=== PATIENT | female | born 1960 | race Caucasian/White ===

== ENCOUNTER → 2016-09-29 | Outpatient (CLI) | payer BC ==
--- NOTE | 2016-09-30 07:54 | MAMMOGRAPHY REPORT ---
BILATERAL DIGITAL SCREENING MAMMOGRAM WITH CAD: 09/29/2016 CLINICAL HISTORY: Routine screening. Patient has no complaints. TECHNIQUE: Bilateral CC and MLO views were obtained. Current study was also evaluated with a Compute r Aided Detection (CAD) system. COMPARISON: Comparison is made to exams dated: 09/03/2015 mammogram, 08/29/2014 mammogram, 08/09/2013 ma mmogram - [facility], 08/11/2012 mammogram, 04/30/2011 mammogram, and 10/26/2010 mammog octaviano - [facility]. BREAST COMPOSITION: The tissue of both breasts is heterogeneously dense, which may obscure small mas ses. FINDINGS: There is a 10 mm nodular asymmetry in the middle one third of the right breast, 9 cm dista l to the nipple along the posterior nipple line on the CC view, also thought to project along the pos terior nipple line on the MLO view. Although this could represent overlapping fibroglandular tissue, additional spot compression tomosynthesis views and possibly ultrasound are recommended. There is evidence of prior left breast surgery. Stable post postbiopsy changes in the right upper ou ter quadrant, with natalya-shaped metallic biopsy marker in place. Stable diffuse benign-appearing round and punctate microcalcifications. No other suspicious mass, architectural distortion or cluster of microcalcifications is seen. IMPRESSION: ACR BI-RADS CATEGORY 0: INCOMPLETE EVALUATION: NEED ADDITIONAL IMAGING EVALUATION The 10 mm nodular asymmetry in the right breast, along the posterior nipple line on the CC view, need s additional evaluation. The patient will be called to schedule an appointment. Approximately 10% of breast cancers are not detected with mammography. A negative mammographic report should not delay biopsy if a clinically suggestive mass is present. Loan Davidson M.D. ay/:09/29/2016 15:34:07 Automobile Spring Repairer: Nicole Ramos [facility] letter sent: Addl Imaging 0 BI-RADS Code: ACR BI-RADS Category 0: Incomplete Evaluation: Need Additional Imaging Evaluation
== END | disposition home or self-care (01) ==
LOC: C.MAMM 13:31
PROVIDERS: ATTEND Family Medicine
DX: Z12.31 Encounter for screening mammogram for malignant neoplasm of breast (principal); N64.89 Other specified disorders of breast

== ENCOUNTER → 2016-10-05 | Outpatient (CLI) | payer BC ==
--- NOTE | 2016-10-06 09:25 | MAMMOGRAPHY REPORT ---
UNILATERAL RIGHT DIGITAL DIAGNOSTIC MAMMOGRAM TOMOSYNTHESIS AND TARGETED RIGHT ULTRASOUND: 10/05/2016 CLINICAL HISTORY: Callback from screening mammography for a 10 mm asymmetry seen on the CC view, slig htly medial to the posterior nipple line in the middle one third of the breast. TECHNIQUE: Spot compression right CC and MLO 2-D and tomosynthesis images were obtained. COMPARISON: Comparison is made to exams dated: 09/29/2016 mammogram, 09/03/2015 mammogram, 08/29/2014 m ammogram, 08/09/2013 mammogram - [facility], 08/11/2012 mammogram, and 04/30/[address] [facility]. BREAST COMPOSITION: The tissue of the right breast is heterogeneously dense, which may obscure small masses. FINDINGS: The recently described 10 mm asymmetry in the middle one third of the right breast effaces with the supplemental spot compression view and there is no corresponding mass or architectural disto rtion on the tomosynthesis images. However, a lobulated mass is now seen in the medial, middle one t hird of the right breast on the spot compression CC view, and below the posterior nipple line on the spot compression MLO view. This lobulated, partially circumscribed mass measures 6.2 x 7.8 x 7.1 mm. Further characterization with ultrasound was performed. No other area of architectural distortion, obvious mass or suspicious microcalcifications are seen. Targeted ultrasound was performed in the medial right breast. In the 1:00 axis, 8 cm from the nipple , there is a multilobulated predominantly anechoic cyst with a few internal nonvascular septations, m easuring 6.7 x 5.0 x 9.6 mm. This correlates well in size, shape and location of the mammographic ma ss and is a benign cyst. No other discrete solid or cystic mass is seen. IMPRESSION: ACR BI-RADS CATEGORY 2: BENIGN, TARGETED ULTRASOUND ACR BI-RADS CATEGORY 2: BENIGN There is effacement of the asymmetry in the right breast along the posterior nipple line on the suppl emental mammographic views and corresponding tomosynthesis images. A newly visualized lobulated mass in the medial right breast measuring 7.8 mm corresponds to a multilobulated cyst on ultrasound. The re is no mammographic or targeted sonographic evidence of malignancy. Return to annual mammogram scr eening schedule is recommended. The patient has been verbally notified of the results. Approximately 10% of breast cancers are not detected with mammography. A negative mammographic report should not delay biopsy if a clinically suggestive mass is present. Loan Davidson M.D. ay/:10/05/2016 08:43:52 Certified Art Therapist: Nicole Ramos, [facility] letter sent: Normal 1/2 BI-RADS Code: ACR BI-RADS Category 2: Benign Ultrasound BI-RADS: ACR BI-RADS Category 2: Benign
== END | disposition home or self-care (01) ==
LOC: C.MAMM 08:12
PROVIDERS: ATTEND Family Medicine
DX: N60.01 Solitary cyst of right breast (principal); R92.8 Other abnormal and inconclusive findings on diagnostic imaging of breast

== ENCOUNTER → 2017-10-21 | Outpatient (CLI) | payer BC ==
--- NOTE | 2017-10-21 15:41 | MAMMOGRAPHY REPORT ---
BILATERAL DIGITAL SCREENING MAMMOGRAM TOMOSYNTHESIS WITH CAD: 10/21/2017 CLINICAL HISTORY: Routine screening. Patient has no complaints. TECHNIQUE: The study was acquired using full field digital technology and interpreted from soft copy. Breast tomosynthesis in addition to standard 2D mammography was performed. Current study was also ev aluated with a Computer Aided Detection (CAD) system. COMPARISON: Comparison is made to exams dated: 10/05/2016 mammogram, 09/29/2016 mammogram, 09/03/2015 ma mmogram, 08/29/2014 mammogram, 08/09/2013 mammogram - [facility], and 08/11/2012 mammogr am - [facility]. BREAST COMPOSITION: The tissue of both breasts is heterogeneously dense, which may obscure small mass es. FINDINGS: No suspicious masses, calcifications, or areas of architectural distortion are noted in either breast . There has been no significant interval change compared to prior exams. Bilateral asymmetries and s cattered bilateral benign-appearing calcifications are not significantly changed. A biopsy clip is a gain noted within the right upper outer quadrant. IMPRESSION: ACR BI-RADS CATEGORY 2: BENIGN There is no mammographic evidence of malignancy. A 1 year screening mammogram is recommended.( 019) The patient will receive written notification of the results. Some breast cancers are not detected with mammography. A negative mammographic report should not aleta y biopsy if a clinically suggestive mass is present. Swetha Starks M.D. ah/:10/21/2017 07:45:09 Cycle Consultant: RT Anabella(R)(M), [facility] letter sent: Normal 1/2 BI-RADS Code: ACR BI-RADS Category 2: Benign
== END | disposition home or self-care (01) ==
LOC: C.MAMM 07:12
PROVIDERS: ATTEND Family Medicine
DX: Z12.31 Encounter for screening mammogram for malignant neoplasm of breast (principal)

== ENCOUNTER 2019-01-31 20:28 | Inpatient (IN) ==
[2019-01-31 21:29] LABS: Basophils # (auto) 0.02 K/uL (0-0.2); Basophils % (auto) 0.3 %; Eosinophils # (auto) 0.31 K/uL (0-0.5); Eosinophils % (auto) 4.4 %; Hematocrit (blood only) 41.3 % (37-47); Hemoglobin 13.5 g/dL (12.0-16.0); Immature Granulocytes # (auto) 0.01 K/uL (0.00-0.02); Immature Granulocytes % (auto) 0.1 %; Lymphocytes # (auto) 1.79 K/uL (1.2-3.4); Lymphocytes % (auto) 25.7 %; Mean Corpuscular Hemoglobin 29.5 pg (25-34); Mean Corpuscular Hgb Conc 32.7 g/dL (32-36); Mean Corpuscular Volume 90.4 fL (80-100); Mean Platelet Volume 10.9 fL (7.4-10.4); Monocytes # (auto) 0.56 K/uL (0.11-0.59); Neutrophils # (auto) 4.28 K/uL (1.4-6.5); Neutrophils % (auto) 61.5 %; Platelet Count 253 K/uL (130-400); RDW Coefficient of Variation 13.6 % (11.5-14.5); RDW Standard Deviation 44.7 fL (36.4-46.3); Red Blood Count 4.57 M/uL (4.2-5.4); White Blood Count 6.97 K/uL (4.8-10.8)
[2019-01-31 21:40] LABS: Partial Thromboplastin Ratio 0.9; Partial Thromboplastin Time 25.6 Seconds (21.0-31.0); Prothrombin Time 10.3 Seconds (9.0-12.0)
[2019-01-31 21:48] LABS: Alanine Aminotransferase 20 U/L (12-78); Albumin Level 3.7 gm/dl (3.4-5.0); Aspartate Aminotransferase 16 U/L (15-37); BUN Creatinine Ratio 20.5 (10-20); Blood Urea Nitrogen 18 mg/dl (7-18); Calcium 9.4 mg/dl (8.5-10.1); Carbon Dioxide 30 mmol/L (21-32); Chloride 105 mmol/L (98-107); Creatinine Clr Calc Pharmacy 75.6 ml/min; Est GFR (African American) 81.1; Glucose 113 mg/dl (70-99); Magnesium 2.2 mg/dl (1.8-2.4); Sodium 139 mmol/L (136-145)
[2019-01-31 21:53] LABS: Alkaline Phosphatase 98 U/L (45-117); Bilirubin,Total 0.2 mg/dl (0.2-1); Globulin 3.9 gm/dl (2.5-4.0); Total Protein 7.6 gm/dl (6.4-8.2); Troponin I < 0.015 ng/ml (0-0.045)
--- NOTE | 2019-01-31 22:01 | CT Scan Report ---
CT head/brain wo con CT DOSE: 537.48 mGy.cm HISTORY: Mental status change slurred speech eval for cva TECHNIQUE: Multiaxial CT images of the head were performed without the use of intravenous contrast. A dose lowering technique was utilized adhering to the principles of ALARA. Comparison: None. Findings: The paranasal sinuses and mastoid air cells are clear. Findings of a prior right parietal c raniotomy. There is associated encephalomalacia of the right temporoparietal region. There is no evidence for acute intracranial hemorrhage. There is somewhat prominent atrophy for age. There is no acute intracranial hemorrhage. There is no m idline shift. Impression: 1. Right cerebral craniotomy with expected postoperative encephalomalacia. 2. Somewhat prominent atrophy for age. 3. No acute process. The above report was generated using voice recognition software. It may contain grammatical, syntax or spelling errors. Electronically signed by: Jeovany Oliver M.D. 01/31/2019 10:00 PM
[2019-01-31] MEDS ORDERED: GADOBUTROL 65ML VIAL IV PRN (23:38)
--- NOTE | 2019-02-01 00:36 | Emergency Department Note ---
Entered by Nicolasa Rubio acting as a scribe for Leonardo Beckwith MD History of Present Illness General Chief complaint: Neuro Symptoms/Deficit Stated complaint: FEELING DIZZY, SLURING SPEECH Time Seen by Provider: 01/31/19 20:40 Source: patient History of Present Illness Onset (ago): hour(s) 3 Location: head (neurological symptoms) Pain Consistency: + other (episode) Quality: + other ("brain feeling funny") Associated symptoms: + denies other symptoms (trouble with urination) and + other (dizziness, slurred speech, decreased mobility of left face) The patient is a 58 year old F who presents to the Emergency Room with complaints of an episode of neurological symptoms that started 3 hours ago. The HPI was provided by the patient and the patients . 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 She adds that the surgery and radiation was performed by [facility]. She states that for the past 2-3 years she has had brief episodes of feeling dizzy once in a while. She describes her dizziness as her brain feeling funny. She denies that her problems with dizziness impede on her normal function. She states that for the past 4-5 years she has been having slurred speech, difficult y with balance, and difficulty driving. She notes that the difficulty with her balance is worsened with walking down the stairs. She adds that she has been veering to the left when she is driving. She notes that she thought these problems were related to her visual problems but states that she has been cleared by an regenerator operator. The patients states that, today, the patient was experiencing dizziness, slurred speech, and decreased mobility of the her left face. The patient attributes these problems to having salad in her mouth. Her states that the symptoms continued even after she was not eating. Her symptoms lasted less than 10 minutes. She states that she has a history of HLD. She denies a history of diabetes and smoking. She also denies currently experiencing trouble with urination. Home Medications Home Medications Medication Instructions Recorded Confirmed Type atorvastatin 10 mg PO DAILY 01/31/19 01/31/19 History levothyroxine 50 mcg PO 2XWK 01/31/19 01/31/19 History levothyroxine 75 mcg PO 5XWK 01/31/19 01/31/19 History Allergies Allergy/AdvReac Type Severity Reaction Status Date / Time No Known Allergies Allergy Unverified 01/31/19 22:25 Past Med/Surg History Medical History Difficulty balancing Hearing loss in right ear History of brain tumor HLD (hyperlipidemia) Slurred speech Family History Other No significant family history Social History Feels Safe at Home: Yes Smoking Status: Never smoker Review of Systems See HPI for pertinent positives & negatives. and A total of 10 systems reviewed and were otherwise negative Physical Exam Vital Signs Vital Signs - 24 hr 01/31/19 20:29 01/31/19 23:51 Temperature 37 C Temperature Source Oral Pulse Rate 78 Pulse Rate [Finger] 66 Respiratory Rate 18 18 Respiratory Effort / Characteristics Non-Labored Respiratory Depth Normal Blood Pressure 146/82 H Blood Pressure [Left Arm] 144/80 H Blood Pressure Mean 103 Blood Pressure Mean [Left Arm] 101 Pulse Oximetry 97 96 Oxygen Delivery Method Room Air Room Air Sepsis Recent Fever Within 48 Hours No Sepsis Action Taken by Nursing No Action Required Constitutional: Vital signs reviewed. Eyes: Pupils are equal round reactive to light. Conjunctiva are noninjected. ENT: Pharynx is clear without erythema or exudate. Mucous membranes are moist. Neck supple without meningeal signs. Respiratory: Clear to auscultation bilaterally. Breath sounds are equal bilaterally. Cardiovascular: Regular rate and rhythm. No rubs or gallops. GI: Soft, nondistended and nontender. Bowel sounds are present. Musculoskeletal: No peripheral edema. No lower extremity tenderness. Integumentary: No cyanosis. Neurological: The patient is awake and alert. Cranial nerves II-XII are intact, except hearing loss to right side. No obvious slurring of speech. Motor is 5 out of 5 all extremities. Sensation is intact to light touch all extremities. Normal speech. No pronator drift. No limb ataxia. Psychiatric: Normal affect. Course Course 2040: The patient was evaluated in room [facility]. A complete history and physical exam was performed. 2224: I reviewed the patient's case with Dr. Mccormack, Neurologist [place]. She states that it does not sound like a TIA. She recommends getting a MRI/MRA. If there are no problems, she states that the patient will follow-up outpatient. 2233: I let the patient and her know of the plan and they are agreeable. Administered Medications Gadobutrol (Gadavist 65ml) 9 ml IV ONCE PRN PRN Reason: Interaction Checking Stop: 02/04/19 23:37 Last Admin: 01/31/19 23:38 Dose: 9 ml Documented by: [id number] Medical Decision Making Differential Diagnosis Differential diagnosis includes: CVA, ICH, brain mass, metabolic derangement, TIA Medical Records Attestation: I reviewed the patient's medical records. I did perform a limited focused review of portions of the patient's old chart on the electronic medical record. The patient has had no recent pertinent visits to this hospital. Home Medications Current Medication List: was personally reviewed by me Laboratory Data Attestation: I reviewed the patient's lab results. Result diagrams: 01/31/19 21:15 01/31/19 21:15 Lab Results 01/31/19 01/31/19 01/31/19 Range/Units 21:15 21:15 21:15 WBC 6.97 (4.8-10.8) K/uL RBC 4.57 (4.2-5.4) M/uL Hgb 13.5 (12.0-16.0) g/dL Hct 41.3 (37-47) % MCV 90.4 (80-100) fL MCH 29.5 (25-34) pg MCHC 32.7 (32-36) g/dL RDW Std Deviation 44.7 (36.4-46.3) fL RDW Coeff of Perry 13.6 (11.5-14.5) % Plt Count 253 (130-400) K/uL MPV 10.9 H (7.4-10.4) fL Immature Gran % (Auto) 0.1 % Neut % (Auto) 61.5 % Lymph % (Auto) 25.7 % Hayes % (Auto) 8.0 % Eos % (Auto) 4.4 % Baso % (Auto) 0.3 % Immature Gran # (Auto) 0.01 (0.00-0.02) K/uL Neut # (Auto) 4.28 (1.4-6.5) K/uL Lymph # (Auto) 1.79 (1.2-3.4) K/uL Hayes # (Auto) 0.56 (0.11-0.59) K/uL Eos # (Auto) 0.31 (0-0.5) K/uL Baso # (Auto) 0.02 (0-0.2) K/uL PT 10.3 (9.0-12.0) Seconds INR 1.0 (0.9-1.1) APTT 25.6 (21.0-31.0) Seconds PTT Ratio 0.9 Sodium 139 (136-145) mmol/L Potassium 4.0 (3.5-5.1) mmol/L Chloride 105 (98-107) mmol/L Carbon Dioxide 30 (21-32) mmol/L Anion Gap 4.0 (3-11) BUN 18 (7-18) mg/dl Creatinine 0.90 (0.6-1.2) mg/dl Est Cr Clr Drug Dosing 75.6 ml/min Est GFR ( Amer) 81.1 Est GFR (Non-Af Amer) 70.0 BUN/Creatinine Ratio 20.5 H (10-20) Glucose 113 H (70-99) mg/dl Calcium 9.4 (8.5-10.1) mg/dl Magnesium 2.2 (1.8-2.4) mg/dl Total Bilirubin 0.2 (0.2-1) mg/dl AST 16 (15-37) U/L ALT 20 (12-78) U/L Alkaline Phosphatase 98 (45-117) U/L Troponin I < 0.015 (0-0.045) ng/ml Total Protein 7.6 (6.4-8.2) gm/dl Albumin 3.7 (3.4-5.0) gm/dl Globulin 3.9 (2.5-4.0) gm/dl Albumin/Globulin Ratio 1.0 (0.9-2) Imaging Data Radiologist's Impression: Radiology results as stated below per my review and t he radiologist's interpretation: CT head/brain wo con CT DOSE: 537.48 mGy.cm HISTORY: Mental status change slurred speech eval for cva TECHNIQUE: Multiaxial CT images of the head were performed without the use of intravenous contrast. A dose lowering technique was utilized adhering to the principles of ALARA. Comparison: None. Findings: The paranasal sinuses and mastoid air cells are clear. Findings of a prior right parietal craniotomy. There is associated encephalomalacia of the right temporoparietal region. There is no evidence for acute intracranial hemorrhage. There is somewhat prominent atrophy for age. There is no acute intracranial hemorrhage. There is no midline shift. Impression: 1. Right cerebral craniotomy with expected postoperative encephalomalacia. 2. Somewhat prominent atrophy for age. 3. No acute process. The above report was generated using voice recognition software. It may contain grammatical, syntax or spelling errors. Electronically signed by: Jeovany Oliver M.D. 01/31/2019 10:00 PMMRA HEAD : Short segment severe stenosis at the right MCA trifurcation (image [id number]). No occlusive disease or high-grade stenosis within the remainder of the intracranial vessels. No aneurysm. MRI HEAD : There is a single punctate high intensity focus within the right frontoparietal joseph radiata (diffusion image 4-16). It is difficult to determine whether this represents true restricted diffusion versus shine through however a tiny acute lacunar infarct could have this appearance. There are a few punctate enhancing foci, for example within the posterior right temporal lobe on image 14-54 measuring 4 mm in the cortex and 3 mm in the periventricular white matter. An additional wispy focus of enhancement within the right thalamus and peripheral right frontal cortex measuring 2 mm (image 14- 72). These are nonspecific. Consider metastatic disease because of the multifocal nature. 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 Chronic microvascular ischemic changes. Developmental venous anomaly in the left posterior temporal lobe. MRA NECK : No steno-occlusive disease. Radiologist: Michael Connell MD ECG Data Attestation: I personally reviewed and interpreted this ECG as follows: Indication: + other (Stroke like symptoms) Rate (beats per minute): 68 Rhythm: + normal sinus ECG ST segments: no ST elevation ECG Findings: + Other (low-voltage QRS); no PVCs Blood Pressure Blood Pressure Findings: Elevated blood pressure Blood Pressure Disposition: further management by hospitalist [facility] Narrative I did evaluate the patient as noted above. The patient is presenting with strokelike symptoms. She had slurring of her speech and left-sided facial weakness which has now since resolved. Her states that it lasted approximately 10 minutes or less. She has no prior history of stroke but has a history of brain tumor removed from the right side of her brain. IV access was established. The patient was placed on a continuous monitoring specialist. I did order and personally review the patient's 12-lead EKG as described above. She has no evidence of acute ischemia. I did order and review the patient's blood work as noted in the electronic medical record. CBC is unremarkable with no evidence of anemia or leukocytosis. Electrolytes are unremarkable as well. I did order a CT of the head. I did review the images myself as well as the radiology report as described above. There is no evidence of acute intracranial abnormality. I did discuss the test results with the patient. At this time is unclear whether or not her symptoms are related to TIA as she has some chronicity to her dysarthria and disequilibrium. What was new today was the lef t facial droop. I therefore discussed the case with neurology. Dr. Mccormack recommended getting an MRI and MRA of the head and neck. Should there be any vascular abnormality or obvious infarct she should be admitted otherwise she could follow-up as an outpatient. I did order these tests after discussion with the patient. The MRI of the head demonstrates short segment severe stenosis of the right MCA trifurcation. MRI of the head demonstrates possible tiny acute lunar infarct as well as some nonspecific punctate enhancing foci in the posterior right temporal lobe. Given these findings she will require hospitalization for further evaluation and neurologic consultation. The hospitalist was informed of the case. I did treat the patient with aspirin 325 mg p.o. Impression & Plan Stroke-like symptom, Dysarthria, Weakness on left side of face, Middle cerebral artery stenosis Discharge Plan Visit Data Chief Complaint: Neuro Symptoms/Deficit Stated Complaint: FEELING DIZZY, SLURING SPEECH ED Provider: Leonardo Beckwith Discharge Problem: Stroke-like symptom, Dysarthria, Weakness on left side of face, Middle cerebral artery stenosis Patient Disposition: Being Evaluated by Hospitalist Condition: Good Forms Stand Alone Forms: [facility] Prescriptions Prescriptions: No Action atorvastatin 10 mg tablet 10 mg PO DAILY RF: 0 levothyroxine 50 mcg tablet 50 mcg PO 2XWK RF: 0 levothyroxine 75 mcg tablet 75 mcg PO 5XWK RF: 0 Referrals Referrals: Marily Ellis [Primary Care Provider] - The scribe's documentation has been prepared under my direction and personally reviewed by me in its entirety. I confirm that the note above accurately reflects all work, treatment, procedures, and medical decision making performed by me.
[2019-02-01] MEDS ORDERED: ASPIRIN 81 MG CHEW PO STA (00:45)
--- NOTE | 2019-02-01 02:07 | History & Physical Report ---
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 She reports slurred speech, difficulty with balance and driving for the past 4 to 5 years. he denies dizziness and left- sided facial droop in the past which were new tonight. Concern for TIA versus stroke versus brain mets. Dysarthria, disequilibrium and left-sided facial change Concern for possible TIA versus stroke versus brain mets especially given dysarthria and disequilibrium have been going on for 4 to 5 years MRI brain: Single punctate high intensity focus within the right frontoparietal joseph radiata - true restricted diffusion versus shine through vs tiny acute lacunar infarct. few punctate enhancing foci within posterior right temporal lobe 4 mm in cortex and 3 mm in periventricular white matter. Focus of en hancement within right thalamus and peripheral right frontal cortex measuring 2 mm - nonspecific. Consider metastatic disease because of the multifocal nature. 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 Chronic microvascular ischemic changes. Developmental venous anomaly in the left posterior temporal lobe. MRA head: Severe stenosis right MCA trifurcatioN MRA neck: No acute occlusive disease CT head: Right cerebral craniotomy with post op encephalomalacia EKG: Normal sinus rhythm [address] changes Troponin negative Fasting lipid and hemoglobin A1c ordered Received aspirin 324 mg x 1 in the ED Started on aspirin 81 mg daily Continue home atorvastatin Admitted to telemetry Neurology consulted: Dr. 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 Patient describes dizziness as "brain feeling funny ". She reports slurred speech, difficulty with balance and driving for the past 4 to 5 years. She has been noted to veer to the left when driving and has also got stopped by endoscope technician in the past. Patient denies any driving trouble but has also noticed this. She denies dizziness and left-sided facial droop in the past which were new tonight. Tonight she was having dinner and had salad in her mouth when her daughter noticed that her speech was slurred she could not complete a sentence and her face was frozen on the left side. also noticed this after her daughter pointed out. However patient keeps reiterating that her speech was not slurred is just that she had food in her mouth. Patient has been cleared by ophthalmology in the past. 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 Denies any fever, chills, chest pain, shortness of breath, abdominal pain, nausea, vomiting, diarrhea, constipation, abdominal pain, hematochezia, hematuria, dysuria, lower extremity edema or discomfort Past medical history: Hyperlipidemia, hypothyroidism, optic nerve tumor Surgical history: 1991 craniotomy for tumor involving optic nerve -also received radiation, left breast lumpectomy Social history: Lives with , denies ever smoking drinking or using recreational drugs Allergies Allergy/AdvReac Type Severity Reaction Status Date / Time No Known Allergies Allergy Unverified 01/31/19 22:25 Home Medications Home Medications Medication Instructions Recorded Confirmed Type levothyroxine 50 mcg PO 2XWK 01/31/19 01/31/19 History levothyroxine 75 mcg PO 5XWK 01/31/19 01/31/19 History aspirin [Ecotrin Low Strength] 81 mg PO QAM #30 tab 02/01/19 Rx atorvastatin 80 mg PO QAM #30 tab 02/01/19 Rx clopidogrel [Plavix] 75 mg PO DAILY #30 tab 02/01/19 Rx Past Med/Surg History Medical History Difficulty balancing Hearing loss in right ear History of brain tumor HLD (hyperlipidemia) Slurred speech Family History Other No significant family history Social History Communication Ability: Effective Wire Strander Required: No Beliefs That Will Affect Care: None Current Living Situation: Spouse Feels Safe at Home: Yes Smoking Status: Never smoker Hx Alcohol Use: No Hx Substance Use: No Review of Systems Review of Systems: As per HPI Physical Exam Physical Exam: General: In NAD Neuro: A&O x 4, CN 2-12 intact, no pronator drift, strength 5 out of 5 bilateral upper and lower extremities, sensation intact bilateral upper and lower extremities, DTR bilateral knees 2+, normal gait, unable to do tandem stance due to trouble with balance, normal Romberg test Pulm: CTAB equal breath sounds bilaterally CV: RRR, no m/r/g Abdomen:+BS, no TTP in all quadrants, non-distended LE: no LE edema, no calf TTP Results & Data Vital Signs (Past 12 Hours) Vital Signs Temp Pulse Pulse Resp BP BP Pulse Ox 02/01/19 01:00 68 18 121/78 96 01/31/19 23:51 66 18 144/80 H 96 01/31/19 20:29 37 C 78 18 146/82 H 97 Laboratory Results Abnormal lab results 01/31/19 01/31/19 Range/Units 21:15 21:15 MPV 10.9 H (7.4-10.4) fL BUN/Creatinine Ratio 20.5 H (10-20) Glucose 113 H (70-99) mg/dl Diagnostic Findings CT head/brain wo con CT DOSE: 537.48 mGy.cm HISTORY: Mental status change slurred speech eval for cva TECHNIQUE: Multiaxial CT images of the head were performed without the use of intravenous contrast. A dose lowering technique was utilized adhering to the principles of ALARA. Comparison: None. Findings: The paranasal sinuses and mastoid air cells are clear. Findings of a prior right parietal craniotomy. There is associated encephalomalacia of the right temporoparietal region. There is no evidence for acute intracranial hemorrhage. There is somewhat prominent atrophy for age. There is no acute intracranial hemorrhage. There is no midline shift. Impression: 1. Right cerebral craniotomy with expected postoperative encephalomalacia. 2. Somewhat prominent atrophy for age. 3. No acute process. Code Status & VTE Plan Code Status Full per discussion with and patient VTE Prophylaxis Plan VTE Prophylaxis will be ordered: Yes Supervising Physician Co-Signing Physician Notes Attending addendum: I have physically seen this patient, have supervised the medical residents activities, and agree with the H&P unless as otherwise noted. Assessment and Plan: Strokelike symptoms- Dysarthria, disequilibrium and left-sided facial drooping. First 2 symptoms have been going on and off for 4 to 5 years, however, the facial changes new. CT of head: Right cerebral craniotomy with postop encephalomalacia. MRA of head shows severe stenosis of the right MCA trifurcation. MRA neck is negative. The patient will be admitted to telemetry for serial cardiac enzymes, serial EKG's, cardiac rhythm monitoring and a 2-D echocardiogram with Dopplers. Received aspirin 324 mg in ED. Continue aspirin 81 mg daily. Continue high-dose atorvastatin. Check a fasting lipid panel and hemoglobin A1c. Neurology consulted over the phone by the ED: Dr. Mccormack Remainder of orders and notations as noted. Resident Activity Tracking Resident Involvement: Resident Care Provided Care Provided: Adult [facility]
[2019-02-01] MEDS ORDERED: ONDANSETRON INJ 2 MG/ML 2 ML VIAL IV PRN (02:29)
[2019-02-01] MEDS ORDERED: ACETAMINOPHEN 325 MG TAB PO PRN (02:29)
[2019-02-01] MEDS ORDERED: POLYETHYLENE (MIRALAX) 17 GM PACK PO PRN (02:29)
[2019-02-01] MEDS ORDERED: PHARMACIST DISCHARGE MED REC CONSULT PRN (02:29)
--- NOTE | 2019-02-01 05:36 | Magnetic Resonance Report ---
MR brain wo/w con CLINICAL HISTORY: 58 years-old Female presenting with slurred speech/left facial droop, dizziness, sy mptoms now resolved, history of brain surgery in 1991, eval for cva. TECHNIQUE: Multisequence, multiplanar MR imaging of the brain was performed before and after the admi nistration of intravenous contrast. IV contrast: 9 mL of Gadavist. COMPARISON: Noncontrast CT head from earlier the same day and brain MR from 2005. FINDINGS: Localizer images: Unremarkable. Bone marrow signal intensity within the calvarium within normal limits. Normal midline sagittal structures. Proportional ventricular and sulcal prominence, slightly advanced for age-related parenchymal volume loss. No mass effect or midline shift. Punctate focus of restrict ed diffusion in the right periventricular white matter. No hemorrhage. Chronic cystic encephalomalaci a and mild gliosis in the right temporal lobe unchanged from prior consistent with the operative bed. T2/FLAIR hyperintensity in the periventricular and subcortical white matter likely chronic small ves talha ischemic change though this is advanced for the patient's age. Several (at least 3) punctate foci of enhancement involving the enriquez-white matter junction in the right temporooccipital region and adj acent periatrial white matter (series 14 images 53 and 55) and right frontal lobe near the enriquez-white matter junction (series 14 image 72). The largest focus in the enriquez-white matter junction at the rig ht temporal occipital region has a somewhat curvilinear appearance and could alternatively be vascula r. Similar appearance is noted in suspected atypical vasculature in the dorsal right thalamus (series 14 image 63). The periatrial white matter focus of enhancement is also somewhat linear, however, the right frontal punctate focus of enhancement does not appear vascular. Developmental venous anomaly n oted in the left posterior temporal region. No extra-axial fluid collection. T2 skull base flow voids preserved. IMPRESSION: 1. Findings are suggestive of an acute lacunar infarct in the right periventricular white matter. 2. Several (at least 3) punctate foci of enhancement in the right cerebrum. The appearance is concer lul for metastatic disease among other possibilities. Correlate with known underlying malignancy. It is possible that at least one of these lesions may represent abnormal vasculature, possibly in the p ostsurgical or post radiation setting. A follow-up brain MR in 3 months with contrast is recommended at a minimum. 3. Stable appearance of the operative bed in the right temporal lobe. 4. Presumed chronic small vessel ischemic change. These findings were discussed with Dr. Beckwith by Dr. Connell on 02/01/2019 00:33 AM. Electronically signed by: Wesley Landon M.D. 02/01/2019 5:34 AM
--- NOTE | 2019-02-01 05:43 | Magnetic Resonance Report ---
MR angio head wo con CLINICAL HISTORY: 58 years-old Female presenting with dizziness, slurred speech, history of brain raul velvet in 1991. TECHNIQUE: MR angiography of the head was performed without the use of intravenous contrast using 3-D [id number] technique. 3-D volumetric and/or maximum intensity projection (MIP) images were subse quently reconstructed for review. IV contrast: None. COMPARISON: None. FINDINGS: Localizer images: Unremarkable. Anterior circulation: Intracranial portions of the internal carotid arteries patent to the level of t he termini. Anterior cerebral arteries patent. Apparent high-grade stenosis in the one of the proxima l M2 branches of the trifurcating right middle cerebral artery (MCA) (series 3 image 97). The remaini ng M2 branches are patent. Left MCA patent. Anterior communicating artery is hypoplastic or aplastic. . Posterior circulation: Codominant vertebral arteries. Intradural portions of the vertebral arteries p atent. Posterior inferior cerebellar arteries patent. Basilar artery patent. Anterior inferior cerebe llar arteries poorly visualized. Superior cerebellar arteries patent. Posterior cerebral arteries pat ent with a near origins of the certified coding specialist. Posterior communicating arteries patent. IMPRESSION: 1. High-grade stenosis suspected in one of the proximal M2 branches of the right MCA. 2. No focal vessel occlusion or aneurysm. Electronically signed by: Wesley Landon M.D. 02/01/2019 5:42 AM
--- NOTE | 2019-02-01 05:48 | Magnetic Resonance Report ---
MR angio neck wo/w con CLINICAL HISTORY: 58 years-old Female presenting with dizziness, slurred speech, history of brain sohail or in 1991. TECHNIQUE: MR angiography of the neck was performed before and after the administration of intravenou s contrast. 3-D volumetric and/or maximum intensity projection (MIP) images were subsequently reconst ructed for review. IV contrast: 9 mL of Gadavist. Stenosis measurements were based on NASCET-like cri teria (distal lumen diameter as the denominator for stenosis measurement). COMPARISON: None. FINDINGS: Localizer images: Unremarkable. Aortic arch: Atherosclerosis of the three-vessel aortic arch. Innominate artery: Patent. Right subclavian artery: Patent. Right common carotid artery: Patent. Right internal and external carotid arteries: Right carotid bifurcation patent. Right internal and ex ternal carotid arteries widely patent. Left common carotid artery: Patent. Left internal and external carotid arteries: Left carotid bifurcation patent. Left internal and exter nal carotid arteries widely patent. Left subclavian artery: Patent though the origin is not included within the [id number]. Vertebral arteries: Codominant vertebral arteries. Origins and courses of the bilateral vertebral art eries patent. Other: Limited intracranial evaluation within normal limits. Soft tissues of the neck normal allowing for the phase of contrast. IMPRESSION: 1. No dissection, significant stenosis, or focal vessel occlusion. Electronically signed by: Wesley Landon M.D. 02/01/2019 5:47 AM
[2019-02-01 06:09] LABS: Chol HDL Ratio 4; Cholesterol 156 mg/dl (0-200); HDL Cholesterol 43 mg/dl; LDL Cholesterol Calculated 97 mg/dl; Triglycerides 82 mg/dl (0-150); VLDL Cholesterol 16 mg/dl
[2019-02-01] MEDS ORDERED: LEVOTHYROXINE SODIUM 50 MCG TABLET PO SCH (06:30)
[2019-02-01] MEDS ORDERED: LEVOTHYROXINE SODIUM 75 MCG TABLET PO SCH (06:30)
--- NOTE | 2019-02-01 06:56 | Neurology Consultation ---
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 Symptom localization: Right hemispheric Stroke mechanism: flow failure WorkUp: - CT head: encephalomalacia in the right posterior temporal lobe consistent with her known resection of temporal tumor; generalized atrophy with ex vacuo dilation, bilateral calcifications of the basal ganglia - CTA head/neck: pending - MRI brain: punctate area of diffusion restriction in the right centrum semiovale that does not have ADC correlate, several punctate areas of contrast- enhancement at the base of the old tumor bed, encephalomalacia in the right t emporal lobe consistent with known prior tumor resection, moderate small vessel ischemic disease 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 (looks more similar to the first than the latter) - MRA head/neck: high-grade stenosis in the right MCA at the M1/M2 bifurcation but no other high-grade stenosis, aneurysm, large vessel occlusion noted - TTE: pending - Telemetry: pending - A1c: pending - FLP: 97 - Troponin, TSH: negative, pending Management: - Acute treatment: ASA - Continuous cardiac monitoring - Vitals, Neurochecks, NIHSS per unit routine - BP parameters: SBP CAP 220 until about 4 PM, hold home anti-hypertensives for permissive HTN, IV Labetalol/Hydralazine PRN - Complete TIA workup with TTE with bubble, A1c,TSH - Consult speech, PT, OT for supportive management - Will auto club travel counselor concerning stroke education, smoking cessation, healthy diet, physical activity, weight loss - Follow up with PCP for assistance with outpatient goals (BP <135/85, LDL <70, A1c <7) - Follow up in neurology clinic in 6-8 weeks #Transient episode of dizziness, dysarthria and left facial droop: Most likely represented transient hypoperfusion in the setting of the high-grade stenosis at the M1/M2 bifurcation. Cannot rule out focal seizure given her extensive encephalomalacia in the right temporal lobe. Would recommend obtaining a CTA of the head for better evaluation as MRA can sometimes overcall the extent of stenosis. If she still has noted high grade stenosis of the R M1/M2 bifurcation, would add plavix to optimize medical management (not amendable to surgical intervention/stent given intracranial location and overall worse outcomes in clinical trials if intracranial stent is attempted) A1c pending, LDL mildly elevated at 97 -> would increase atorvastatin to 40 mg daily Do not think that that one punctate area of diffusion restriction on DWI is consistent with a stroke as there is no clear ADC correlate Echo pending, if patient would prefer to go home today given the holiday, could have the echo done as an outpatient within the next 1 week - outpatient EEG script on discharge (if event recurs, would check blood pressure. If normal BP and no orthostasis, would obtain EEG while inpatient) # Balance issues: She was not able to give me clear history of what her balance issues were but she does report feeling off balance and veering to the left at times. No neuropathy noted and normal Romberg on exam. - would obtain B12, TSH w/ free T4 to rule out treatable causes Thank you for this interesting consult. If the CTA can be completed by the end of the day and she has no further events, she would be okay to discharge from a neurological standpoint after 4 PM. Please call or text with any questions. 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 She was in her normal state of health until eating dinner on 01/31 when she noticed acute onset of dysarthria and dizziness. Family reported seeing a left facial droop. Entire episode lasted less than 10 minutes. Symptoms started after she had bent over to grab something and stood up. Denies any numbness, tingling, weakness, change in vision or hearing with episode. Reports associated feeling that is difficult to describe (brain feels "fuzzy"). She has had prior episodes of imbalance/dysarthria in the past that were similar in character, but has never noticed facial droop or dizziness, prompting presentation to the ED. In the ED, labs notable for WBC 6.7, hemoglobin 13.5, platelets 253, INR 1.0, sodium 139, anion gap 4.0, creatinine 0.9, glucose 113, calcium 9.4, magnesium 2.2, negative troponin, LDL 97. CT head shows an area of encephalomalacia in the right posterior temporal lobe consistent with her known resection of temporal tumor; generalized atrophy with ex vacuo dilation, bilateral calcifications of the basal ganglia. MRI brain per my read shows a punctate area of diffusion restriction in the right centrum semiovale that does not have ADC correlate, several punctate areas of contrast-enhancement at the base of the old tumor bed, encephalomalacia in the right temporal lobe consistent with known prior tumor resection, moderate small vessel ischemic disease. MRA head and neck shows a high-grade stenosis in the right MCA at the M1/M2 bifurcation but no other high-grade stenosis, aneurysm, large vessel occlusion noted. Of note, there is an MRI report from October 2008 available in her all scripts chart that notes that her old area of resection in the posterior temporal tumor bed does show enhancement that was thought to represent chronic postsurgical change, as well as advanced small vessel disease versus radiation necrosis from her prior radiation treatment and a suspected small cavernous angioma in the left frontal lobe. This morning she reports that she feels back to her baseline. She reports that she also has these brief episodes where her "brain feels funny" that lasts only for a few seconds and occurs about once per week. She was unable to describe the sensation further but denied loss of consciousness or other seizure symptoms during these episodes. Of note, she does have dysarthria on exam (reports this is her baseline speech), as well as intermittent flattening of the left nasal labial fold is observed this morning. She does not appear to be aware of either the symptoms. Allergies Allergy/AdvReac Type Severity Reaction Status Date / Time No Known Allergies Allergy Unverified 01/31/19 22:25 Home Medications Home Medications Medication Instructions Recorded Confirmed Type atorvastatin 10 mg PO DAILY 01/31/19 01/31/19 History levothyroxine 50 mcg PO 2XWK 01/31/19 01/31/19 History levothyroxine 75 mcg PO 5XWK 01/31/19 01/31/19 History Patient History Medical History Difficulty balancing Hearing loss in right ear History of brain tumor HLD (hyperlipidemia) Slurred speech Family History Other No significant family history Social History Communication Ability: Effective Hired Hand Required: No Beliefs That Will Affect Care: None Current Living Situation: Spouse Other Information That Helps Us Care for You: No Feels Safe at Home: Yes Safety Concerns: Feels Safe At This Time Smoking Status: Never smoker Hx Alcohol Use: No Hx Substance Use: No Review of Systems Review of Systems: 14 point review of systems completed and negative except as in HPI. Physical Exam Physical Exam: General Exam: GEN: NAD, sitting in bed. HEENT: No conjunctival injection, no rhinorrhea. CV: RRR, no peripheral edema PULM: Nonlabored respirations on room air. Neuro Exam: MS: Awake and Alert. Oriented to person, place, and date. Speech fluent and appropriate, + dysarthria, no paraphasic errors. Language intact including naming, comprehension, repetition. Cognition and memory grossly intact. Attention intact. No neglect. CN: Visual pérez full. No extinction to double simultaneous stimuli. Unable to visualize optic discs on fundoscopic exam. PERRLA OU. Unable to completely bury the sclera on the right gaze in the right eye, otherwise normal extraocular movements without nystagmus. Facial sensation intact to LT. Subtle intermittent left nasolabial fold flattening. Hard of hearing. Uvula midline with symmetric palatal elevation. Shoulder shrug normal. Tongue midline. MOTOR: Normal bulk and tone. Slight pronator drift noted in the left upper extremity. BUE strength 5/5 at deltoids, biceps, triceps, wrist flexors and extensors, and finger flexors bilaterally. BLE strength 5/5 at iliopsoas, hamstrings, quadriceps, tibialis anterior, and gastrocnemius bilaterally. REFLEXES: 2+ at biceps, triceps, brachioradialis, 2+ and brisk patella and trace Achilles bilaterally. Flexor plantar responses bilaterally. SENSORY: Intact to LT without extinction to double simultaneous stimuli. Vibration and pinprick intact throughout. COORDINATION: No dysmetria or ataxia on [id number] bilaterally. Normal Wily bilaterally. GAIT: Slow, slightly broad-based gait with normal arm swing. Normal Romberg. Results & Data Vital Signs (Past 12 Hours) Vital Signs Temp Pulse Pulse Resp BP BP Pulse Ox 02/01/19 03:00 73 02/01/19 02:58 37.0 C 73 18 140/77 96 02/01/19 02:07 66 18 148/77 H 95 02/01/19 01:00 68 18 121/78 96 01/31/19 23:51 66 18 144/80 H 96 01/31/19 20:29 37 C 78 18 146/82 H 97 Laboratory Results 02/01/19 02/01/19 01/31/19 Range/Units 05:23 05:23 21:15 WBC (4.8-10.8) K/uL RBC (4.2-5.4) M/uL Hgb (12.0-16.0) g/dL Hct (37-47) % MCV (80-100) fL MCH (25-34) pg MCHC (32-36) g/dL RDW Std Deviation (36.4-46.3) fL RDW Coeff of Perry (11.5-14.5) % Plt Count (130-400) K/uL MPV (7.4-10.4) fL Immature Gran % (Auto) % Neut % (Auto) % Lymph % (Auto) % Cass % (Auto) % Eos % (Auto) % Baso % (Auto) % Immature Gran # (Auto) (0.00-0.02) K/uL Neut # (Auto) (1.4-6.5) K/uL Lymph # (Auto) (1.2-3.4) K/uL Cass # (Auto) (0.11-0.59) K/uL Eos # (Auto) (0-0.5) K/uL Baso # (Auto) (0-0.2) K/uL PT (9.0-12.0) Seconds INR (0.9-1.1) APTT (21.0-31.0) Seconds PTT Ratio Sodium 139 (136-145) mmol/L Potassium 4.0 (3.5-5.1) mmol/L Chloride 105 (98-107) mmol/L Carbon Dioxide 30 (21-32) mmol/L Anion Gap 4.0 (3-11) BUN 18 (7-18) mg/dl Creatinine 0.90 (0.6-1.2) mg/dl Est Cr Clr Drug Dosing 75.6 ml/min Est GFR ( Amer) 81.1 Est GFR (Non-Af Amer) 70.0 BUN/Creatinine Ratio 20.5 H (10-20) Glucose 113 H (70-99) mg/dl Calcium 9.4 (8.5-10.1) mg/dl Magnesium 2.2 (1.8-2.4) mg/dl Total Bilirubin 0.2 (0.2-1) mg/dl AST 16 (15-37) U/L ALT 20 (12-78) U/L Alkaline Phosphatase 98 (45-117) U/L Troponin I < 0.015 (0-0.045) ng/ml Total Protein 7.6 (6.4-8.2) gm/dl Albumin 3.7 (3.4-5.0) gm/dl Globulin 3.9 (2.5-4.0) gm/dl Albumin/Globulin Ratio 1.0 (0.9-2) Triglycerides 82 (0-150) mg/dl Cholesterol 156 (0-200) mg/dl LDL Cholesterol, Calc 97 mg/dl VLDL Cholesterol, Calc 16 mg/dl HDL Cholesterol 43 mg/dl Cholesterol/HDL Ratio 4 Hepatitis C Ab Screen Pending 01/31/19 01/31/19 Range/Units 21:15 21:15 WBC 6.97 (4.8-10.8) K/uL RBC 4.57 (4.2-5.4) M/uL Hgb 13.5 (12.0-16.0) g/dL Hct 41.3 (37-47) % MCV 90.4 (80-100) fL MCH 29.5 (25-34) pg MCHC 32.7 (32-36) g/dL RDW Std Deviation 44.7 (36.4-46.3) fL RDW Coeff of Perry 13.6 (11.5-14.5) % Plt Count 253 (130-400) K/uL MPV 10.9 H (7.4-10.4) fL Immature Gran % (Auto) 0.1 % Neut % (Auto) 61.5 % Lymph % (Auto) 25.7 % Cass % (Auto) 8.0 % Eos % (Auto) 4.4 % Baso % (Auto) 0.3 % Immature Gran # (Auto) 0.01 (0.00-0.02) K/uL Neut # (Auto) 4.28 (1.4-6.5) K/uL Lymph # (Auto) 1.79 (1.2-3.4) K/uL Cass # (Auto) 0.56 (0.11-0.59) K/uL Eos # (Auto) 0.31 (0-0.5) K/uL Baso # (Auto) 0.02 (0-0.2) K/uL PT 10.3 (9.0-12.0) Seconds INR 1.0 (0.9-1.1) APTT 25.6 (21.0-31.0) Seconds PTT Ratio 0.9 Sodium (136-145) mmol/L Potassium (3.5-5.1) mmol/L Chloride (98-107) mmol/L Carbon Dioxide (21-32) mmol/L Anion Gap (3-11) BUN (7-18) mg/dl Creatinine (0.6-1.2) mg/dl Est Cr Clr Drug Dosing ml/min Est GFR ( Amer) Est GFR (Non-Af Amer) BUN/Creatinine Ratio (10-20) Glucose (70-99) mg/dl Calcium (8.5-10.1) mg/dl Magnesium (1.8-2.4) mg/dl Total Bilirubin (0.2-1) mg/dl AST (15-37) U/L ALT (12-78) U/L Alkaline Phosphatase (45-117) U/L Troponin I (0-0.045) ng/ml Total Protein (6.4-8.2) gm/dl Albumin (3.4-5.0) gm/dl Globulin (2.5-4.0) gm/dl Albumin/Globulin Ratio (0.9-2) Triglycerides (0-150) mg/dl Cholesterol (0-200) mg/dl LDL Cholesterol, Calc mg/dl VLDL Cholesterol, Calc mg/dl HDL Cholesterol mg/dl Cholesterol/HDL Ratio Hepatitis C Ab Screen PG Care Time/CCT Total # of Minutes Spent Total Time Spent with Patient: Total time spent is greater than 50% in coordination of care (as documented) at patient's floor/unit and/or counseling patient: (1) Middle cerebral artery stenosis Laterality: right Qualified Code(s): I66.01 - Occlusion and stenosis of right middle cerebral artery
[2019-02-01] MEDS ORDERED: INFLUENZA VIRUS QUAD VACCINE 0.5 ML SYR IM ONE (08:30)
[2019-02-01] MEDS ORDERED: INFLUENZA ADMINISTRATION CHARGE ONE (08:30)
[2019-02-01] MEDS ORDERED: ATORVASTATIN 40 MG TAB PO SCH (09:00)
[2019-02-01] MEDS ORDERED: ASPIRIN 81 MG ECTAB PO SCH (09:00)
[2019-02-01] MEDS ORDERED: ATORVASTATIN 10 MG TAB PO SCH (09:00)
[2019-02-01] MEDS ORDERED: OPTIRAY 320 125ml IV PRN (09:06)
--- NOTE | 2019-02-01 09:29 | CT Scan Report ---
CT angio head w con CLINICAL HISTORY: 58 years-old Female presenting with dysarthria, facial droop, possible abnormality on MRA head, CTA for better characterization. TECHNIQUE: Multidetector CT angiography of the head was performed after the administration of intrave nous contrast. 3-D volumetric and/or maximum intensity projection (MIP) images were subsequently abby nstructed for review. IV contrast: Optiray 320. One or more dose lowering techniques were used consis tent with the principles of ALARA (as low as reasonably achievable), including automatic exposure con trol, mA or kV adjustment to individual patient size, and/or use of iterative reconstruction. COMPARISON: MRA head performed yesterday. CT DOSE (mGy.cm): The estimated cumulative dose is 108.37 mGy.cm. FINDINGS: Liability Claims Representative topogram: Unremarkable. Anterior circulation: Intracranial portions of the internal carotid arteries patent to the level of t he termini. Anterior cerebral arteries patent. High-grade stenosis of one of the origin/proximal M2 b ranch of the trifurcated right middle cerebral artery (MCA). Left MCA patent. Anterior communicating artery hypoplastic. Posterior circulation: Codominant vertebral arteries. Intradural portions of the vertebral arteries p atent. Posterior inferior cerebellar arteries patent. Basilar artery patent with a mildly bulbous tip . Anterior inferior cerebellar arteries poorly visualized. Superior cerebellar arteries patent. or near origin of the posterior cerebral arteries, which are patent. Posterior communicating a rteries patent. Dural venous sinuses: Patent. Other: Postsurgical changes of the right temporoparietal calvarium with subjacent cyst encephalomalac ia in the right temporal lobe. IMPRESSION: 1. CTA confirms the high-grade stenosis in one of the proximal M2 branches of the trifurcated right MCA. No other site of high-grade stenosis. 2. No focal vessel occlusion or aneurysm. 3. Postsurgical changes in the right temporal lobe and overlying calvarium. Electronically signed by: Wesley Landon M.D. 02/01/2019 9:26 AM
--- NOTE | 2019-02-01 09:48 | Discharge Summary ---
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 Patient describes dizziness as "brain feeling funny ". She reports slurred speech, difficulty with balance and driving for the past 4 to 5 years. She has been noted to veer to the left when driving and has also got stopped by photostatic copy maker in the past. Patient denies any driving trouble but has also noticed this. She denies dizziness and left-sided facial droop in the past which were new tonight. Tonight she was having dinner and had salad in her mouth when her daughter noticed that her speech was slurred she could not complete a sentence and her face was frozen on the left side. also noticed this after her daughter pointed out. However patient keeps reiterating that her speech was not slurred is just that she had food in her mouth. Patient has been cleared by ophthalmology in the past. 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 Denies any fever, chills, chest pain, shortness of breath, abdominal pain, nausea, vomiting, diarrhea, constipation, abdominal pain, hematochezia, hematuria, dysuria, lower extremity edema or discomfort Past medical history: Hyperlipidemia, hypothyroidism, optic nerve tumor Surgical history: 1991 craniotomy for tumor involving optic nerve -also received radiation, left breast lumpectomy Social history: Lives with , denies ever smoking drinking or using recreational drugs Admission Exam Per Admitting Provider General: In NAD Neuro: A&O x 4, CN 2-12 intact, no pronator drift, strength 5 out of 5 bilateral upper and lower extremities, sensation intact bilateral upper and lower extremities, DTR bilateral knees 2+, normal gait, unable to do tandem stance due to trouble with balance, normal Romberg test Pulm: CTAB equal breath sounds bilaterally CV: RRR, no m/r/g Abdomen:+BS, no TTP in all quadrants, non-distended LE: no LE edema, no calf TTP Principal Diagnosis CVA Discharge Exam Constitutional WD/WN, vitals as above Respiratory normal respiratory effort, lungs clear to auscultation Cardiovascular RRR, no murmur, no edema Gastrointestinal (Abdomen) normal bowel sounds, soft, nontender, no hepatosplenomegaly Skin no rashes, warm and dry Neurologic +dysarthria Strength 5/5 b/l UE and LE Left sided facial droop Psychiatric A+Ox3, euthymic affect Discharge Data Allergies Allergy/AdvReac Type Severity Reaction Status Date / Time No Known Allergies Allergy Unverified 01/31/19 22:25 Consultations 02/01/19 00:44 ED Decision to Admit Stat 02/01/19 02:29 Consult Neurology Routine Ordered Studies 01/31/19 20:59 CT head/brain wo con Stat 01/31/19 22:29 MR angio head wo con Stat MR angio neck wo/w con Stat MR brain wo/w con Stat 02/01/19 07:47 CT angio head w con Routine Hospital Course (1) Middle cerebral artery stenosis: 58-year-old female with 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 CVA. Dysarthria, disequilibrium and left-sided facial change - Concern for possible TIA versus stroke. Pt's reports that pt is back to baseline at this time. - MRI brain: Single punctate high intensity focus within the right frontoparietal joseph radiata - true restricted diffusion versus shine through vs tiny acute lacunar infarct. few punctate enhancing foci within posterior right temporal lobe 4 mm in cortex and 3 mm in periventricular white matter. Focus of enhancement within right thalamus and peripheral right frontal cortex measuring 2 mm - nonspecific. Consider metastatic disease because of the multifocal nature. 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 Chronic microvascular ischemic changes. Developmental venous anomaly in the left posterior temporal lobe. - MRA head: Severe stenosis right MCA trifurcation. - MRA neck: No acute occlusive disease. - CT head: Right cerebral craniotomy with post op encephalomalacia. - CTA head: severe stenosis right MCA trifurcation. - EKG: Normal sinus rhythm [address] changes. - Neuro consulted and appreciate recommendations: Plavix 75 mg daily, asa 81 mg daily (aspirin PLUS plavix for a month, then drop to plavix alone unless otherwise directed in neurology follow up), increase atorvastatin from 10mg daily, Hgb A1c/TSH/B12 pending. - Pt will follow up with both PCP and neurology in the near future. Hypothyroidism - Continue home levothyroxine. Hyperlipidemia - Increased atorvastatin to 80 mg daily. Dispo: home with self care (2) Weakness on left side of face: (3) Dysarthria: (4) HLD (hyperlipidemia): (5) Hypothyroidism: Total Time Total Time Spent Total Time Spent (In Minutes): >30 Discharge Plan Discharge Items Patient Disposition: Home - Self-Care Reason For Visit: SLURRED SPEECH, DIZZINESS, FACIAL DROOP Discharge Diagnosis: Brain ischemia Condition on Discharge: Good Activity: Resume your previous activity Non-emergency contact: Primary Care Provider and Hospitalist Call non-emergency contact if: you have any medication questions, your symptoms worsen and your temperature is above 101 Follow-up/Referrals: Felicia Mccormack MD [Physician] - (f/u CVA) Marily Ellis [Primary Care Provider] - Diet: Regular Addtl Attending Provider Instructions: You were admitted to the hospital for concern for a stroke. We checked imaging of your brain to see if you had a stroke, which showed a small clot in a vessel in your brain. Neurology saw you and said that the best treatment moving forward to make sure that this does not happen again is to start you on a blood thinner called Plavix daily, a higher dose of your cholesterol medicine Lipitor every day, and a daily baby aspirin. Other risk factors that will make it easier for you to get a stroke are high sugars, smoking, and high blood pressure. I have sent to the [facility] prescriptions for Aspirin 81mg daily, Atorvastatin (Lipitor) 80mg daily, and clopidogrel (Plavix) 75mg daily. You should take these medications once a day until you can talk to your PCP about how to help manage you moving forward. If you do not hear from your doctor's office by Tuesday please call to schedule a follow up appointment to discuss your hospital stay. You will be contacted regarding following up with Neurology in the office to discuss your management as well. Pending Studies at Discharge: No Stand-Alone Forms: Medications to Prevent Stroke, My [facility] [employer], Smoking Cessation Medications and DC Order Prescriptions: New atorvastatin 40 mg Tablet 80 mg PO QAM Qty: 30 RF: 1 aspirin [Ecotrin Low Strength] 81 mg Tablet,Delayed Release (Dr/Ec) 81 mg PO QAM Qty: 30 RF: 1 clopidogrel [Plavix] 75 mg tablet 75 mg PO DAILY Qty: 30 RF: 1 Continued levothyroxine 50 mcg tablet 50 mcg PO 2XWK RF: 0 levothyroxine 75 mcg tablet 75 mcg PO 5XWK RF: 0 Discontinued atorvastatin 10 mg tablet 10 mg PO DAILY RF: 0 Discharge Orders: Discharge Order (Routine); Ordered 02/01/19 Ordered By: Lilibeth Arora Admission Data Admit Date/Time: 02/01/19 02:04 Attending Provider: Tj Perez Admit Provider: Eran Dang Primary Care Provider: Marily Ellis Other Providers: Eran Dang ; Felicia Mccormack Other Interventions: Discharge Summary Assessment (RN) Last Done: 02/01/19 14:42 DC Date/Time DO NOT enter until pt leaves facility: 02/01/19 15:10 Supervising Physician Co-Signing Physician Notes I personally examined the patient and verified all hennessy points of history and exam, discussed case, and agree with decision making with Dr Arora. Feeling better. seems to think she is back to her baseline as well. Neurology input appreciated. Dr. Arora and I updated patient and on findings diagnoses and plans, and we answered all questions to the best of our ability. Vitals noted, in general she is awake and alert pleasant no distress. HEENT normocephalic atraumatic mucous members moist. Neuro shows no new focal deficits she seems to be back to her baseline according to and certainly has no visible facial droop. Her speech is somewhat thick Cerebrovascular diseaseagree with neurology that while there appears to be an area of acute infarct on MRI it is more likely that her symptoms were a watershed type TIA because of the tight branch of her MCA stenosis. Secondary risk reductionfollow blood pressure although I doubt she has hypertension, await A1c and outpatient follow-up on this, increase atorvastatin to 80 mgneeding at least 40 mg for plaque stabilization benefit, but looking at trying to get her LDL to a goal of less than 70 forty mg would likely not be enough to get her there, aspirin plus Plavix for a month followed by Plavix alone indefinitely. Given her only significant classic risk for atherosclerosis is her hyperlipidemia, and less her A1c comes back surprising with elevations that we do not expect, I also do wonder how much of this branch of her MCA stenosis is related to prior surgery and radiation therapyalthough for plaque stabilization/antiplatelet benefit management would likely more or less be the same, except that may be one could argue being able to reduce to 40 mg of Lipitor. Close outpatient/PCP follow-up, follow-up with neurology as well. Resident Activity Tracking Resident Involvement: Resident Care Provided Care Provided: Adult [facility]
[2019-02-01] MEDS ORDERED: STROKE PATIENT DISCHARGE STA (14:27)
--- NOTE | 2019-02-01 16:10 | Billing Data ---
Coding Level of Care Code D/C Day Management >30 mins
[2019-02-02] MEDS ORDERED: LEVOTHYROXINE SODIUM 75 MCG TABLET PO SCH (06:30)
[2019-02-02 07:35] LABS: Estimated Average Glucose 123 mg/dl; Hemoglobin A1C 5.9 % (4.5-5.6)
[2019-02-02] MEDS ORDERED: ATORVASTATIN 40 MG TAB PO SCH (09:00)
--- NOTE | 2019-02-02 20:06 | Billing Data ---
Coding Level of Care Code 65540 Initial Inpt Care Lvl 3
== END 2019-02-01 15:10 | disposition home or self-care (01) | DRG 68 ==
LOC: ED 20:28 → 2N 02-01 02:04 → SUATTDRO 02-01 02:04 → 2N 02-01 02:17